=== PATIENT | male | born 1970 | race Caucasian/White ===

== ENCOUNTER → 2023-06-19 06:56 | Day surgery (SDC) | payer OTHER, SELFPAY ==
[2023-06-19 07:32] VITALS: BMI 34.3
== END ==
LOC: CATH 06:56
PROVIDERS: ATTENDING PHYSICIAN Internal Medicine Cardiovascular Disease
DX: I48.0 Paroxysmal atrial fibrillation (principal); I08.1 Rheumatic disorders of both mitral and tricuspid valves; I10 Essential (primary) hypertension; E78.5 Hyperlipidemia, unspecified; Z79.01 Long term (current) use of anticoagulants
CPT/HCPCS: 93325; 93320; 93312

== ENCOUNTER → 2023-06-27 07:32 | Outpatient (REF) | payer OTHER, SELFPAY | LOC: DHCBC/DCA 07:32 | PROVIDERS: ATTENDING PHYSICIAN Internal Medicine Cardiovascular Disease; FAMILY PHYSICIAN Family Medicine | DX: I48.0 Paroxysmal atrial fibrillation (principal) | CPT/HCPCS: 78452; 93017; A9500; J2785 ==

== ENCOUNTER 2023-08-09 07:01 | Day surgery (SDC) | payer OTHER, SELFPAY ==
[2023-08-09 07:19] VITALS: BMI 33.7
--- NOTE | 2023-08-09 08:41 | ITS.CL.CARDI ---
Chief Nurse Anesthetist - Cardioversion
Cardioversion
Procedure Report:
Date of Procedure:
Procedure: Cardioversion
Indication: Symptomatic atrial fibrillation
Performing Physician: Eliseo Brown MD
Technique: The patient was brought to the holding area. Signed informed consent was obtained. A time out was called and performed. The patient was anesthetized by the anesthesia service. Anticoagulation status was reviewed and appropriate. R2 pads
were placed anteriorly and posteriorly. A 200 J synchronized biphasic shock failed but a 360 J synchronized biphasic shock restored normal sinus rhythm without significant bradycardia. There were no complications.
Conclusion: Uncomplicated cardioversion from atrial fibrillation to sinus rhythm.
Recommendation: Routine post cardioversion care. Continue continuous churn buttermaker anticoagulation.
== END 2023-08-09 09:11 | disposition home or self-care (01) ==
LOC: CATH 07:01
PROVIDERS: ATTENDING PHYSICIAN Internal Medicine Cardiovascular Disease; FAMILY PHYSICIAN Family Medicine; OTHER PHYSICIAN Internal Medicine Cardiovascular Disease
DX: I48.0 Paroxysmal atrial fibrillation (principal); I08.1 Rheumatic disorders of both mitral and tricuspid valves; I10 Essential (primary) hypertension; E78.5 Hyperlipidemia, unspecified; R06.02 Shortness of breath; Z79.01 Long term (current) use of anticoagulants
CPT/HCPCS: 93312; 93320; 93325; 92960; 93005

== ENCOUNTER 2023-10-10 05:56 | Day surgery (SDC) | payer OTHER, SELFPAY ==
[2023-09-26 09:05] VITALS: BMI 34.1
[2023-09-26 09:41] LABS: % Basophils 0.7 % (0-2); % Eosinophils 2.5 % (0-6); % Lymphocytes 36.5 % (20.5-51.1); % Monocytes 7.9 % (1.7-9.3); % Neutrophils 51.4 % (42.2-75.2); Absolute Eosinophils 0.1 10^3/uL (0-0.7); Absolute Lymphocytes 1.5 10^3/uL (1.2-3.4); Absolute Monocytes 0.3 10^3/uL (0.1-0.6); Absolute Neutrophils 2.1 10^3/uL (1.4-6.5); Hematocrit 43.6 % (39.0-52.0); Hemoglobin 15.2 g/dL (13.0-18.0); Mean Corp Hgb Conc. 34.9 g/dL (33.0-37.0); Mean Corpuscular Hgb 33.3 pg (27.0-31.0); Mean Corpuscular Volume 95.4 fL (80.0-94.0); Mean Platelet Volume 10.6 fL (7.4-10.4); Nucleated Red Blood Cells % 0 % (-); Platelet Count 139 10^3/uL (130-400); Red Blood Cell Count 4.57 10^6/uL (4.70-6.10); Red Cell Dist. Width 14.3 % (11.5-14.5)
[2023-09-26 10:00] LABS: ALT (SGPT) 39 U/L (0-50); AST (SGOT) 54 U/L (17-59); Albumin 4.1 g/dl (3.5-5.0); Alkaline Phosphatase 160 U/L (38-126); Blood Urea Nitrogen 10 mg/dl (9-20); Calcium 9.1 mg/dl (8.4-10.2); Carbon Dioxide 24 mmol/L (22-30); Chloride 104 mmol/L (98-107); Estimated Creatinine Clearance > 125 ml/min; Glucose 160 mg/dl (70-99); Potassium 4.1 mmol/L (3.5-5.1); Sodium 137 mmol/L (135-145); Total Bilirubin 0.7 mg/dl (0.2-1.3); Total Protein 6.7 g/dl (6.3-8.2); eGFR > 60.00
[2023-09-26 10:04] LABS: INR 1.23; PT 15.5 Sec (11.4-14.6)
[2023-10-10] VITALS (17 sets, daily range): BP systolic 99–133; BP diastolic 56–100
[2023-10-10 09:00] LABS: ACT-LR - POC 347 Seconds (116-155)
[2023-10-10 09:16] LABS: ACT-LR - POC 358 Seconds (116-155)
[2023-10-10 09:41] LABS: ACT-LR - POC 335 Seconds (116-155)
[2023-10-10 10:07] LABS: ACT-LR - POC 376 Seconds (116-155)
[2023-10-10 10:31] LABS: ACT-LR - POC 189 Seconds (116-155)
[2023-10-10] MEDS: ZOFRAN 4 MG IV (11:21)
[2023-10-10] MEDS: ANESTHETIC LOZENGE 1 LOZENGE PO (11:26)
--- NOTE | 2023-10-10 11:27 | ITS.CL.ABL ---
Mail Machine Operator - Ablation
Ablation
Procedure Report:
Primary Care Physician: Prem Early DO
Procedure Date: 10/10/2023
Patient History:
Patient is a pleasant 53-year-old male with a past medical history significant for hypertension, neuropathy, gout, new dilated cardiomyopathy, paroxysmal early persistent atrial fibrillation, left atrial appendage thrombus resolved on Pradaxa.
See H&P for complete details.
Indication:
Symptomatic persistent atrial fibrillation
Cardiomyopathy
Arrhythmia Specific History:
Prior Medical Therapies for Rate and Rhythm Control:
X Beta-carlos
[ ] Calcium channel-carlos
[ ] Amiodarone
[ ] Dronederone
[ ] Sotalol
[ ] Flecainide
[ ] Dofetilide
[ ] Options limited by bradycardia
[ ] Options limited by comorbid renal disease
Prior Procedural Therapies for AF/AFL:
X Cardioversion
[ ] Pulmonary Vein Isolation
[ ] Posterior Wall Isolation
[ ] Additional lines (Specify)
[ ] Surgical Espino-MAZE or PVI (Specify)
Procedure Performed:
X AF ablation procedure (40084) -- includes LA/CS pacing, trans-septal, 3D mapping, + ICE
[ ] +IV drug (92682)
[ ] +Other Arrhythmia (18159)
[ ] +Other AF Line/ablation (09324)
Risks and expected recovery has been explained in detail. Alternative options have been explored, and in a shared-decision making fashion we have decided that this was the most appropriate procedure.
Method
NPO status confirmed. Grounding pad applied. Defibrillator pads applied. Continuous surface ECG, pulse oximetry, and blood pressure were monitored. Procedure was performed under general anesthesia, with anesthesia services.
Both groins were clipped, prepped with Chloraprep, and draped in sterile fashion. Time out was called. Local anesthesia administered with bupivacaine. The right and left femoral veins were accessed for catheter placement, using ultrasound guidance,
micro-puncture needle/wire, and modified seldinger technique. 3 sheaths were placed. The following catheters were used:
[ ] Tacticath SE (D/F Curve) ablation catheter
X Viewflex 9Fr ICE catheter
X Inquiry decapolar 6Fr diagnostic catheter
[ ] CRD Hex 6Fr
[ ] Arctic Front Advance Cryoballoon ([ ]28mm[ ]23mm)
[ ] Achieve Advance mapping catheter ([ ]15mm[ ]20mm)
X FlexCath Contour 10 Fr with PulseSelect PFA Catheter
X Advisor HD Grid Mapping Catheter, SE
[ ] Acuson AcuNav 8 Fr ICE catheter
[ ]Other: [ ]
Intracardiac ultrasound (ICE) was carefully advanced into the right atrium to guide sheath placement over a J-wire, catheter placement, guide trans-septal puncture, identify potential complications, identify anatomic structures and ensure proper
contact between ablation catheter and tissue.
Heparin was given prior to trans-septal puncture. Heparin was given to achieve and maintain a target ACT of 300-400 seconds throughout the procedure.
Trans-septal access was performed under ICE guidance. The trans-septal puncture was performed with a SafeSept wire through a Brockenbrough needle assembly through the steerable sheath. The wire was visualized as it entered the LSPV and system
advanced under ICE guidance and fluoroscopy into the LA. The Brockenbrough needle assembly, SafeSept wire and sheath dilator were removed under negative pressure. LA pressure was measured and recorded.
ICE and 3D mapping was performed to identify relevant cardiac structures. A careful 3D map was created to assess for regions of low-voltage and abnormal electrogram signals using HD grid mapping catheter and PulseSelect catheter. Additional mapping
was performed as outlined below.
Prior to ablation, glycopyrrolate was provided. PulseSelect catheter was advanced over J-wire to the ostium of each vein. Pulmonary vein isolation was performed with ostial and antral lesions in a circumferential manner. Contact was visualized via
EAM, ICE, fluoroscopy, and EGM signals. Following completion of ablation lesions, sinus rhythm was restored with a 200J synchronized DCCV and a post-ablation voltage/activation map was performed in sinus rhythm. Entrance and exit block were
confirmed for each vein.
Catheter and sheath were removed from the left atrium and post-ablation intracardiac echo evaluation was consistent with pre-ablation with no changes and no pericardial effusion and there is no left atrial thrombus or left ventricle thrombus seen.
Electrophysiology study was performed. Hemostasis was obtained with figure of 8 stitch for each groin and with manual pressure. Protamine was used for reversal.
Estimated Blood Loss
5-10 mL
Complications
None
Fluoroscopy: 6.7 minutes; 49.49 mGy; DAP 6.32
Baseline Intervals:
Rhythm: AF
QRS: 81 ms
QT: 352 ms
QTc: 537 ms
R-R: 430 ms
Post-Procedure Intervals:
MD: 172 ms
QRS: 86 ms
QT: 463 ms
QTc: 469 ms
A-A: 975 ms
R-R: 975 ms
AVWB: 340 ms
AVNERP: 600/290 ms
Recommendations
- Bedrest with straight-leg precautions as ordered
- Anticipate same day discharge if patient meeting clinical metrics
- Resume home medications as indicated
- Ok to resume anticoagulation tonight if patient and groin sites stable
- PPI daily for 30 days
- Plan for follow-up in office in 4-6 weeks
Sukumar Diaz DO
Clinical Cardiac Black Top Spreader Machine Operator
cc: Prem Early DO
[2023-10-10] MEDS: NEURONTIN 600 MG PO (14:06)
--- NOTE | 2023-10-10 15:30 | W.PN.UPDATE ---
Update Note
Progress Note Update
Pt seen post PVI. Bilat groin sites without ht/bleeding, non tender. OOB ambulating, urinating without difficulty. Post EKG NSR 60s, no acute changes. Resume pradaxa today, continue other meds as before. Followup at [facility] as scheduled. Home later
today if groin sites/tele remain stable.
== END 2023-10-10 15:45 | disposition home or self-care (01) ==
LOC: CATH 05:56
PROVIDERS: ATTENDING PHYSICIAN Internal Medicine Cardiovascular Disease; FAMILY PHYSICIAN Family Medicine
DX: I48.19 Other persistent atrial fibrillation (principal); Z79.01 Long term (current) use of anticoagulants; I10 Essential (primary) hypertension; I42.0 Dilated cardiomyopathy; G62.9 Polyneuropathy, unspecified; E78.5 Hyperlipidemia, unspecified
CPT/HCPCS: C1732; C1769; C1894; 36415; 75572; 76937; 80053; 85025; 85347; 85610; 86850; 86900; 86901; 93005; 93656; 93926; Q9967

== ENCOUNTER 2023-10-10 23:05 | Observation (INO) | payer OTHER, SELFPAY ==
[2023-10-10 17:59] VITALS: BP 125/92; BMI 35.2
--- NOTE | 2023-10-10 18:25 | ED.GENMED ---
History of Present Illness
<ADRIENNE Joshi - Last Filed: 10/11/23 03:06>
General
Chief Complaint: Vascular Symptoms
Source: patient
Exam Limitations: none
Time Seen by Provider: 10/10/23 18:03
Travel History
Have you had any contact with someone who has COVID-19?: No
Do you have any symptoms of coronavirus? Fever > 100 degrees, chills, cough, shortness of breath, sore throat, loss of taste or smell, muscle aches, or headache?: No
History of Present Illness
History of Present Illness:
This is a 53 year old male that comes in with c/o bleeding from both groins. States that he was here today for an ablation for his atrial fib. States that he was only home 1 hour when he bent over to get something and he stated bleeding from both
groin areas. States that that he has been SOB and nauseated after the ablation. Denies any fever, chills, chest pain, abd pain, vomiting, diarrhea, headache, dizziness, urinary burning.
Past History
<ADRIENNE Joshi - Last Filed: 10/11/23 03:06>
Past History
ED Past Medical History: Arrthythmia (Atrial fib), CHF, GERD, HTN, Hypercholesterolemia, Psychiatric (Anxiety, ) and Other (Neuropathy, Back pain, Hemorrhoids, Anemia, )
ED Past Surgical History: Orthopedic (Right and left hip surgery)
Social History
Tobacco: Non-smoker
Alcohol: Chronic alcoholic (Daily beer 2-3)
Drug: Marijuana
Personal: Single
Living: with roommate
Employment: Not employed
Review of Systems
<ADRIENNE Joshi - Last Filed: 10/11/23 03:06>
Review of Systems
All Other Systems: ROS reviewed and negative except as documented in HPI and ROS
Constitutional: Reports no symptoms; Denies fever or chills
EENT: Reports no symptoms
Respiratory: Reports trouble breathing; Denies cough
Cardiac: Reports no symptoms; Denies chest pain
ABD/GI: Reports nausea; Denies abdominal pain, vomiting or diarrhea
: Reports no symptoms; Denies dysuria, frequency or urgency
Musculoskeletal: Reports no symptoms
Skin: Reports no symptoms
Neurological: Reports no symptoms; Denies dizzy or headache
Psychiatric: Reports no symptoms
Phy Exam
<ADRIENNE Joshi - Last Filed: 10/11/23 03:06>
General Physical Exam
General Presentation: well appearing and no apparent distress
General age: appears stated age
General Skin: warm and dry
General Habitus: normal
General Mental: alert
General Hydration: appears well hydrated
ENT Exam
ENT Exam: TM's normal, pharynx normal and neck supple
Eye Exam
Eye Exam: EOMI
Cardiovascular Exam
Cardiovascular Exam: regular rate/rhythm, no edema and normal peripheral pulses
Pulmonary Exam
Pulmonary Exam: lungs clear, no respiratory distress, no rales, chest non tender, no crackles, no rhonchi, no wheezing and no cough
Gastrointestinal Exam
Gastrointestinal Exam: normal bowel sounds, non tender, soft, no organomegaly, no pulsatile mass and non distended
Musculoskeletal Exam
Musculoskeletal Exam: full ROM and no edema
Skin Exam
Skin Exam: normal color, warm/dry, no rash and no petechia
Psychiatric Exam
Psychiatric Exam: normal mood/affect
Course
<ADRIENNE Joshi - Last Filed: 10/11/23 03:06>
Orders/Labs/Results
Orders:
Orders
10/10/23 18:30
US Groin (vascular exam) LT Urgent
Comment: r/o pseudo aneurysm
Reason For Exam: Bleeding after ablation
US Groin (vascular exam) RT Urgent
Comment:
Reason For Exam: Bleeding after ablation
10/10/23 18:58
Complete Blood Count/With Diff Urgent
Comprehensive Metabolic Panel Urgent
Abnormal Lab Results
10/10/23
18:58
RBC 4.27 L 10^6/uL
(4.70-6.10)
MCV 97.4 H fL
(80.0-94.0)
MCH 34.0 H pg
(27.0-31.0)
MPV 10.7 H fL
(7.4-10.4)
Absolute Lymphs (auto) 0.9 L 10^3/uL
(1.2-3.4)
Immature Gran % 0.7 H %
(0-0.5)
Neutrophils % 80.5 H %
(42.2-75.2)
Lymphocytes % 15.0 L %
(20.5-51.1)
Carbon Dioxide 21 L mmol/L
(22-30)
Glucose 164 H mg/dl
(70-99)
AST 96 H U/L
(17-59)
10/10/23 18:58
10/10/23 18:58
Anemia. Glucose nonfasting. AST Elevated.
Vital Signs
Initial and Last Documented VS:
Initial Vital Signs
Temp Pulse Resp BP Pulse Ox
98.4 F 63 16 125/92 93
10/10/23 17:59 10/10/23 17:59 10/10/23 17:59 10/10/23 17:59 10/10/23 17:59
Last Documented Vital Signs
Temp Pulse Resp BP Pulse Ox
97.5 F 64 20 141/81 98
10/11/23 11:23 10/11/23 11:30 10/11/23 11:23 10/11/23 11:25 10/11/23 11:23
<Alma Green MD - Last Filed: 10/11/23 12:40>
Orders/Labs/Results
Orders:
Orders
10/10/23 18:30
US Groin (vascular exam) LT Urgent
Comment: r/o pseudo aneurysm
Reason For Exam: Bleeding after ablation
US Groin (vascular exam) RT Urgent
Comment:
Reason For Exam: Bleeding after ablation
10/10/23 18:58
Complete Blood Count/With Diff Urgent
Comprehensive Metabolic Panel Urgent
Abnormal Lab Results
10/10/23
18:58
RBC 4.27 L 10^6/uL
(4.70-6.10)
MCV 97.4 H fL
(80.0-94.0)
MCH 34.0 H pg
(27.0-31.0)
MPV 10.7 H fL
(7.4-10.4)
Absolute Lymphs (auto) 0.9 L 10^3/uL
(1.2-3.4)
Immature Gran % 0.7 H %
(0-0.5)
Neutrophils % 80.5 H %
(42.2-75.2)
Lymphocytes % 15.0 L %
(20.5-51.1)
Carbon Dioxide 21 L mmol/L
(22-30)
Glucose 164 H mg/dl
(70-99)
AST 96 H U/L
(17-59)
10/10/23 18:58
10/10/23 18:58
Vital Signs
Initial and Last Documented VS:
Initial Vital Signs
Temp Pulse Resp BP Pulse Ox
98.4 F 63 16 125/92 93
10/10/23 17:59 10/10/23 17:59 10/10/23 17:59 10/10/23 17:59 10/10/23 17:59
Last Documented Vital Signs
Temp Pulse Resp BP Pulse Ox
97.5 F 64 20 141/81 98
10/11/23 11:23 10/11/23 11:30 10/11/23 11:23 10/11/23 11:25 10/11/23 11:23
<ADRIENNE Joshi - Last Filed: 10/11/23 03:06>
MDM/Problems Addressed
Differential Diagnosis Includes:
Pseudo aneurysm.
MDM/Problems Addressed:
This is a 53 year old male that comes in with c/o bleeding from both groins. States that he had an ablation this morning and he was only home for 1 hour. State that he bent over and he just started to bleed and the blood was running down his legs.
Will check labs and get US.
Spoke with Dr. Hernandez and told that his US was negative. Will discharge home.
Patient went to leave and the right groin had significant bleeding again. Will admit patient to Dr. Brown service
Chronic conditions affecting care:
NA
Acute Exacerbation and/or Progression of Chronic Illness:
NA
<ADRIENNE Joshi - Last Filed: 10/11/23 03:06>
*Pulse Oximetry
Patient hypoxic: no
*EKG
Interpreted by ED Provider?: NA
Rate: EKG- N/A
*Enrollment Eligibility Representative Interpretation
Rate: Enrollment Eligibility Representative- N/A
*Critical Care Note
Total Time (30-74mins, 75-104mins- exclusive of procedures): Not Applicable
ED Attending Note
<ADRIENNE Joshi - Last Filed: 10/11/23 03:06>
-
Portions of this chart may have been created with voice recognition software.� Occasional wrong word or��sound alike� substitutions may have occurred due to the inherent limitations of voice recognition software.
<Alma Green MD - Last Filed: 10/11/23 12:40>
ED Attending Note
Patient seen and examined by attending physician: Yes
I performed the substantive portion of visit, reviewed & personally made and approve the management plan that is documented in note by myself or HI.: Yes
ED Attending Note:
53-year-old male history of Pradaxa use, status post ablation earlier today. Noted to have bleeding at right femoral access site, applied pressure and came to emergency department. Ultrasound unremarkable. Bleeding stopped. However, bleeding
resumed when patient stood and walked prompting him to return to the emergency department. At this time, patient supine, sandbags in place, normal peripheral pulses, no active bleeding, no symptoms. Patient denies pain. He is however quite
agitated and frustrated regarding the fact that bleeding happened in the first place, and then resumed after discharge. He is angry that this has happened, and wants assurance that he will see a plug maker first thing in the morning with likely
discharge tomorrow. Admitting provider made aware of importance of cardiology consult being placed for first thing in the morning. Patient is stable.
Discharge Plan
Departure
Patient Disposition: Admit
Date of Disposition: 10/10/23
Time of Disposition: 21:42
Admit to: Med/Surg
Presentation/result/management discussed w/ accepting MD/DO: DR. Brown
Patient with high blood pressure during this ER visit?: Yes
Condition: Good
Covid-19: Not Applicable
Discharge Problem:
Bleeding at insertion site
Interventions
Interventions:
*Risk Screen - Suicide Last Done: 10/11/23 00:32
*General Assessment Last Done: 10/10/23 17:59
*Neglect/Abuse Screening Last Done: 10/10/23 17:59
*ED COVID-19 Vaccine History Last Done: 10/11/23 00:32
*Nursing Disposition Last Done: 10/11/23 00:41
ED- Cardiac Assessment Last Done: 10/10/23 19:00
ED- Pulmonary Assessment Last Done: 10/10/23 19:00
ED-Peripheral Vascular Assessment Last Done: 10/10/23 19:00
ED-Skin Assessment Last Done: 10/10/23 19:00
Discharge Date and Time
Discharge Date/Time: 10/11/23 00:41
[2023-10-10 19:02] LABS: % Basophils 0.2 % (0-2); % Immature Granulocytes 0.7 % (0-0.5); % Monocytes 3.6 % (1.7-9.3); % Neutrophils 80.5 % (42.2-75.2); Absolute Lymphocytes 0.9 10^3/uL (1.2-3.4); Absolute Monocytes 0.2 10^3/uL (0.1-0.6); Absolute Neutrophils 4.9 10^3/uL (1.4-6.5); Hematocrit 41.6 % (39.0-52.0); Hemoglobin 14.5 g/dL (13.0-18.0); Mean Corp Hgb Conc. 34.9 g/dL (33.0-37.0); Mean Corpuscular Volume 97.4 fL (80.0-94.0); Mean Platelet Volume 10.7 fL (7.4-10.4); Nucleated Red Blood Cells % 0 % (-); Platelet Count 159 10^3/uL (130-400); Red Blood Cell Count 4.27 10^6/uL (4.70-6.10); Red Cell Dist. Width 14.3 % (11.5-14.5); White Blood Cell Count 6.1 10^3/uL (4.8-10.8)
[2023-10-10 19:17] LABS: ALT (SGPT) 40 U/L (0-50); AST (SGOT) 96 U/L (17-59); Alkaline Phosphatase 108 U/L (38-126); Blood Urea Nitrogen 10 mg/dl (9-20); Calcium 8.4 mg/dl (8.4-10.2); Carbon Dioxide 21 mmol/L (22-30); Chloride 106 mmol/L (98-107); Estimated Creatinine Clearance > 125 ml/min; Glucose 164 mg/dl (70-99); Potassium 4.8 mmol/L (3.5-5.1); Sodium 135 mmol/L (135-145); Total Bilirubin 0.8 mg/dl (0.2-1.3); Total Protein 6.4 g/dl (6.3-8.2); eGFR > 60.00
--- NOTE | 2023-10-10 21:52 | PHANOTE ---
Med Rec Note:
Pt refused interview stating 'I already know my medications' and 'this is the third time I've done this today'. Home med list left unconfirmed, compiled from Dr Nugent and Ameena 10/10/23.
--- NOTE | 2023-10-10 23:02 | HPS.HSE ---
Family Physician
-
Family Physician: Prem Early
Chief Complaint
-
Bleeding B/L groin post ablation
History of Present Illness
a 53 years old male that present in ER with a complain of bleeding B/L groin post ablation that was done today. Went to the assess the patient he has sand bag on the right groin as was actively bleeding in ER. Patient was so frustrated and did not
want to go with any further questions or assessment by this group underwriter, he only want to be seen by cardiology. He was concerning about about staying time and receiving another medical bill after discharge. ER physician spoke to the patient and he agreed
to stay to morning, but only to be assessed and evaluated by cardiology.
Medical History
Past Medical History
Past Medical History: Reports Arrhythmia (A-fib), CHF, GERD, HTN, Hypercholesterolemia, Psychiatric (anxiety ) and Other (Neuropathy, hemorrhoids, anemia, and back pain)
Past Surgical History: Reports Orthopedic (B/L hip surgery)
Social History
Tobacco: Non-smoker
Alcohol: Chronic Alcoholic (2-3 beer daily )
Drug: Marijuana
Personal: Single
Living: With Roomate
Employment: Not Employed
Family History
Family History: Diabetes (Brother diabetes Father prediabetes)
Allergies / Home Medications
Allergies reflects when Allergies were last updated in [facility].
Home Medications with original date entered in [facility]
Allergy/Medication List:
Patient Allergies
Allergy/AdvReac Type Severity Reaction Status Date / Time
No Known Allergies Allergy Unverified 10/10/23 06:21
Home Medications Table - record
�Medication �Instructions �Recorded �Confirmed
allopurinol 300 mg tablet 300 mg PO DAILY Gout 05/20/20 10/11/23
ascorbic acid (vitamin C) 1,000 mg 1,000 mg PO DAILY Supplement 05/11/23 10/11/23
tablet
cholecalciferol (vitamin D3) 25 25 mcg PO DAILY Supplement 05/11/23 10/11/23
mcg (1,000 unit) tablet
cyanocobalamin (vitamin B-12) 1,000 mcg PO DAILY Supplement 05/11/23 10/11/23
1,000 mcg tablet
melatonin 12 mg tablet 10 mg PO HS PRN sleep 05/11/23 10/11/23
omeprazole 20 mg capsule,delayed 20 mg PO DAILY Gastrointestinal 05/12/23 10/11/23
release Issue
furosemide 20 mg tablet (Lasix) 20 mg PO DAILY Fluid 05/15/23 10/11/23
retention/Swelling #30 tabs
losartan 25 mg tablet 12.5 mg (1/2 x 25 mg) PO DAILY 05/15/23 10/11/23
Heart Failure #30 tabs
thiamine HCl (vitamin B1) 100 mg 100 mg PO DAILY Supplement #10 tabs 05/15/23 10/11/23
tablet
dabigatran etexilate 150 mg 150 mg PO BID 08/09/23 10/11/23
capsule (Pradaxa)
gabapentin 300 mg capsule 1,200 mg PO DAILY@2000 10/10/23 10/11/23
gabapentin 300 mg capsule 600 mg PO DAILY 10/10/23 10/11/23
gabapentin 300 mg capsule 600 mg PO DAILY@1300 10/10/23 10/11/23
gabapentin 300 mg capsule 900 mg PO QPM 10/10/23 10/11/23
metoprolol succinate 50 mg 100 mg PO BID Arrhythmia 10/10/23 10/11/23
tablet,extended release 24 hr
Review of Systems
-
A 12 point ROS was completed and negative except as noted: Yes
EENT: Reports No Symptoms
Respiratory: Reports Trouble Breathing
Cardiac: Reports No Symptoms
Abdomen/GI: Reports No Symptoms
: Reports No Symptoms
Musculoskeletal: Reports No Symptoms
Skin: Reports No Symptoms
Neurological: Reports No Symptoms
Endocrine: Reports No Symptoms
Hematologic/Lymphatic: Reports Bleeding (RT groin/ ablation site)
Psych: Reports No Symptoms
Physical Exam
Vital Signs
Vital Signs
Temp Pulse Resp BP Pulse Ox
98.4 F 63 16 125/92 93
10/10/23 17:59 10/10/23 17:59 10/10/23 17:59 10/10/23 17:59 10/10/23 17:59
Physical Exam
General: No Apparent Distress
Respiratory: Clear
Cardiac: Regular Rhythm
Musculoskeletal: No Edema
Neuro: Awake and AO x 3
Psych: Intact Judgment/Insight
Laboratory Results
-
10/10/23 18:58
10/10/23 18:58
Laboratory Results
Total Bilirubin 0.8 mg/dl (0.2-1.3) 10/10/23 18:58
AST 96 U/L (17-59) H 10/10/23 18:58
ALT 40 U/L (0-50) 10/10/23 18:58
Alkaline Phosphatase 108 U/L (38-126) 10/10/23 18:58
Impression/Plan
-
B/L groin ultrasound unremarkable
IMPRESSION: Bleeding at insertion site B/L groin/ post ablation.
PLAN:
Admit/ observation/ IVU/ Dr. Brown Cardiology services.
NPO
Continue pressure/ Sand bags on bleeding sites.
CHF/ HTN/ arrhythmia
On lasix / losartan/ metoprolol
Gout
On Allopurinol
GERD
On omeprazole
DVT prophylaxis SCDs
Code status Full code
[2023-10-10 23:04] VITALS: BP 135/77
[2023-10-11] VITALS (9 sets, daily range): BP systolic 112–143; BP diastolic 45–81; BMI 35.2
[2023-10-11] MEDS: MELATONIN 10 MG PO ×2 (00:53→20:39)
--- NOTE | 2023-10-11 01:17 | PTCARENOTE ---
Patient admitted to IVU. Bedrest maintained. Right groin site saturated with blood, dressing removed and changed. Hemostasis pad applied with sterile gauze dressing, pedals . Both his groins are soft. Sandbag applied to right groin. Using urinal,
voided 400 cc. Plan of care reviewed, call quezada in reach
--- NOTE | 2023-10-11 04:08 | PTCARENOTE ---
Sandbag removed. Right groin soft. +2 pedal pulse. Dressing dry, VSS
--- NOTE | 2023-10-11 06:47 | PTCARENOTE ---
Patient out of bed to use the bathroom, bleeding from right groin again. Manual pressure applied for 30 minutes. Closure pad and 4x4 dressing applied. Some bruising around site but groin remians soft. Patient agitated and expressing his frustration
with staff. Sand bag applied.
--- NOTE | 2023-10-11 08:17 | CON.CAR ---
Addendum entered and electronically signed by Sukumar Diaz DO 10/11/23 09:20:
I saw and examined the patient.
The Samples And Repairs Preparer's note was reviewed and I agree with the note.
Comment:
GENERAL: no acute distress, upset/frustrated
EYE: sclera anicteric
NECK: Supple, no JVD
ENT: normal nose, moist mucosal membranes
CARDIAC: Regular rate and rhythm, +S1/S2, no murmur, rubs, or gallops; 2+ BL DP pulses
CHEST/PULMONARY: Normal effort, clear breath sounds
ABDOMEN: Soft, without focal tenderness or distention
NEUROLOGICAL: Alert and oriented x3
SKIN: Warm and dry, no rash; BL groin sites dressing c/d/i, soft, non-tender, no swelling or hematoma appreciated
PSYCH: Normal and appropriate interaction; upset/frustrated
A/P as below
Patient with right groin bleed following procedure on 10/10/2023. Reported bending/lifting as initial aggravating event leading to bleed. Admitted for further monitoring overnight (with bedrest/sandbag). BL groin US negative for hematoma or
pseudoaneurysm. BM today, re-bleed at site. Manual pressure and sandbag once more resolved bleeding. Patient frustrated regarding situation and concern about re-bleeding and is eager to go home as soon as possible. Due to re-bleed this morning, will
repeat lab work, consult vascular surgery for additional recommendations, and perform CT scan to better assess the right groin site. Patient verbalized understanding. He has been refusing bedrest/pressure but after continued discussion and
explanation, patient agreed for now to continue with bedrest and groin precautions. Resume OAC when patient stable and groins stable.
Original Note:
Consultation
Consultation Request
Date/Time Consultation Performed: 10/11/23
Performing Provider: Linda Garcia PA-C for Dr. Diaz
Reason for Consultation: groin bleed
Medical History
-
Chief Complaint: groin bleed
History of Present Illness:
Patient is a 53 yo M who underwent PVI 10/10/23. He was discharged to home same day. He states after going home he sat around for about a half hour then was bending over in the kitchen and noted his R groin was bleeding. He came to ER via EMS.
Sandbag was placed on his R groin for several hours and groin was better. Underwent US negative for pseudoaneurysm. He walked to the bathroom this AM, had BM, and R groin site began bleeding again. Pressure manually applied for 30 minutes then
sandbag placed back on site. Remains soft B/L. Hgb 14.5. Patient admitted for further observation.
PMH:
Symptomatic PAF s/p PVI 10/10/23
Chronic OAC with pradaxa
Dilated NICM, EF 30-35%
HFrEF
History of JOBY thrombus
HTN
Gout
Daily ETOH use
Vapes
Marijuana use
Past Medical History
Past Medical History: Other (in HPI)
Allergies / Home Medications
Allergy/AdvReac Type Severity Reaction Status Date / Time
No Known Allergies Allergy Unverified 10/10/23 06:21
�Medication �Instructions �Recorded �Confirmed �Type
allopurinol 300 mg tablet 300 mg PO DAILY Gout 05/20/20 10/11/23 History
ascorbic acid (vitamin C) 1,000 mg 1,000 mg PO DAILY Supplement 05/11/23 10/11/23 History
tablet
cholecalciferol (vitamin D3) 25 25 mcg PO DAILY Supplement 05/11/23 10/11/23 History
mcg (1,000 unit) tablet
cyanocobalamin (vitamin B-12) 1,000 mcg PO DAILY Supplement 05/11/23 10/11/23 History
1,000 mcg tablet
melatonin 12 mg tablet 10 mg PO HS PRN sleep 05/11/23 10/11/23 History
omeprazole 20 mg capsule,delayed 20 mg PO DAILY Gastrointestinal 05/12/23 10/11/23 History
release Issue
furosemide 20 mg tablet (Lasix) 20 mg PO DAILY Fluid 05/15/23 10/11/23 Rx
retention/Swelling #30 tabs
losartan 25 mg tablet 12.5 mg (1/2 x 25 mg) PO DAILY 05/15/23 10/11/23 Rx
Heart Failure #30 tabs
thiamine HCl (vitamin B1) 100 mg 100 mg PO DAILY Supplement #10 tabs 05/15/23 10/11/23 Rx
tablet
dabigatran etexilate 150 mg 150 mg PO BID 08/09/23 10/11/23 History
capsule (Pradaxa)
gabapentin 300 mg capsule 1,200 mg PO DAILY@199910/10/23 10/11/23 History
gabapentin 300 mg capsule 600 mg PO DAILY 10/10/23 10/11/23 History
gabapentin 300 mg capsule 600 mg PO DAILY@1300 10/10/23 10/11/23 History
gabapentin 300 mg capsule 900 mg PO QPM 10/10/23 10/11/23 History
metoprolol succinate 50 mg 100 mg PO BID Arrhythmia 10/10/23 10/11/23 History
tablet,extended release 24 hr
Review of Systems
-
History Source: Patient
All other systems: Negative unless noted
Physical Exam
Vital Signs
Temp Pulse Resp BP Pulse Ox
98.5 F 68 20 143/78 100
10/11/23 06:53 10/11/23 07:30 10/11/23 06:53 10/11/23 06:53 10/11/23 08:10
Lab Results
10/10/23 18:58
Physical Exam
General: No Apparent Distress and Other (patient angry, agitated)
HEENT: Normocephalic, Anicteric and Moist Mucous Membranes
Respiratory: Clear and Non Labored Respirations
Cardiac: S1/S2 and Regular Rhythm
GI: Soft, Non Tender, Non Distended and Normal Bowel Sounds
Musculoskeletal: No Clubbing, No Cyanosis and No Edema
Skin: Warm, Dry and Other (B/L groin sites soft, NTTP. sandbag on R groin, dressings c/d/i)
Neuro: AO x 3
Impression / Plan
-
Primary Tape Cutting Machine Operator: Dr. Diaz
Assessment:
R groin bleed (venous)
Symptomatic PAF s/p PVI 10/10/23
Chronic OAC with pradaxa
Dilated NICM, EF 30-35%
HFrEF
History of JOBY thrombus, resolved by GORGE 07/2023
HTN
Gout
Daily ETOH use
Vapes
Marijuana use
GORGE 07/2023: EF 30 to 35%, moderately dilated left atrium, mildly dilated right atrium, mildly dilated left atrial appendage, no clear thrombus seen, mild MR, mild to moderate TR
Plan:
-Patient presents back to [facility] after PVI 10/10/2023 due to right groin bleed. He states this initially started after he bent over in the kitchen yesterday evening. Since then he has had recurrence after having a bowel movement this
morning
-he remains very upset and agitated at times. we discussed with patient importance of activity restriction to avoid extra pressure on groin sites and for now plan to continue bedrest and sandbag pressure. he is very concerned that bleeding will
occur again without intervention
-reviewed hgb stable and US of B/L groins without pseudoaneurysm
-due to his ongoing concerns, and refusal to accept plan of bedrest with ongoing pressure application, will order CT venogram to ensure no larger bleeding issue. may require vascular eval
-currently remains off pradaxa, would plan to restart as soon as deemed safe from bleeding standpoint.
-in SR
-BPs stable. continue toprol, cozaar. would consider addition of SGLT2 and spironolactone as BP tolerates with known cardiomyopathy.
-d/w nursing
Data Reviewed
-
EKG: Tracing Personally Visualized and interpreted
Ultrasound: Report Reviewed by me
Medical Tests (Nuc Med, Echo etc): Report Reviewed by me
Labs: Labs Reviewed by me
Old Records: Reviewed
[2023-10-11 09:10] LABS: Hemoglobin 12.6 g/dL (13.0-18.0); Mean Corpuscular Hgb 34.5 pg (27.0-31.0); Mean Corpuscular Volume 98.6 fL (80.0-94.0); Mean Platelet Volume 10.4 fL (7.4-10.4); Platelet Count 127 10^3/uL (130-400); Red Blood Cell Count 3.65 10^6/uL (4.70-6.10); White Blood Cell Count 6.4 10^3/uL (4.8-10.8)
[2023-10-11] MEDS: PROTONIX 40 MG PO (09:31)
[2023-10-11] MEDS: TOPROL XL 100 MG PO ×2 (09:31→20:37)
[2023-10-11] MEDS: COZAAR 12.5 MG PO (09:31)
--- NOTE | 2023-10-11 11:07 | CON.VAS ---
Consultation
Consultation Request
Date/Time Consultation Performed: 10/11/2023 1045
Requesting Provider: Sukumar Diaz MD
Performing Provider: Gia Stacy NP-C for Saroj Jeffers MD
Reason for Consultation: Right groin reoccurent bleeding
Medical History
-
Chief Complaint: Right groin puncture site
History of Present Illness:
This is a 53-year-old male with significant past medical history for atrial fibrillation, CHF, HTN, GERD, and gout who underwent PVI procedure on 10/10/2023 via bilateral groin common femoral vein access. A 12 [place] sheath was used in the right
groin. Patient notes he had gone home yesterday and was bending down to get something out of a drawer and noted a pop sensation and blood streaming down his leg. He was able to get this to stop but then had another episode while he was getting to
the car to go to the ER. Then had another episode today after bowel movement. Denies any history of any arterial or venous problems.
Past Medical History
Past Medical History: CHF (Dilated NICM, EF 30-35%, HFrEF), GERD, HTN, Hypercholesterolemia and Other (Symptomatic PAF s/p PVI 10/10/23, History of JOBY thrombus, gout, neuropathy, hemorrhoids, anemia)
Past Surgical History: Orthopedic (B/L hip surgery)
Social History
Tobacco: Vaping
Alcohol: Daily
Drug: Marijuana
Personal: Single
Living: With Roomate
Allergies / Home Medications
Allergy/AdvReac Type Severity Reaction Status Date / Time
No Known Allergies Allergy Unverified 10/10/23 06:21
�Medication �Instructions �Recorded �Confirmed �Type
allopurinol 300 mg tablet 300 mg PO DAILY Gout 05/20/20 10/11/23 History
ascorbic acid (vitamin C) 1,000 mg 1,000 mg PO DAILY Supplement 05/11/23 10/11/23 History
tablet
cholecalciferol (vitamin D3) 25 25 mcg PO DAILY Supplement 05/11/23 10/11/23 History
mcg (1,000 unit) tablet
cyanocobalamin (vitamin B-12) 1,000 mcg PO DAILY Supplement 05/11/23 10/11/23 History
1,000 mcg tablet
melatonin 12 mg tablet 10 mg PO HS PRN sleep 05/11/23 10/11/23 History
omeprazole 20 mg capsule,delayed 20 mg PO DAILY Gastrointestinal 05/12/23 10/11/23 History
release Issue
furosemide 20 mg tablet (Lasix) 20 mg PO DAILY Fluid 05/15/23 10/11/23 Rx
retention/Swelling #30 tabs
losartan 25 mg tablet 12.5 mg (1/2 x 25 mg) PO DAILY 05/15/23 10/11/23 Rx
Heart Failure #30 tabs
thiamine HCl (vitamin B1) 100 mg 100 mg PO DAILY Supplement #10 tabs 05/15/23 10/11/23 Rx
tablet
dabigatran etexilate 150 mg 150 mg PO BID 08/09/23 10/11/23 History
capsule (Pradaxa)
gabapentin 300 mg capsule 1,200 mg PO DAILY@2000 10/10/23 10/11/23 History
gabapentin 300 mg capsule 600 mg PO DAILY 10/10/23 10/11/23 History
gabapentin 300 mg capsule 600 mg PO DAILY@1300 10/10/23 10/11/23 History
gabapentin 300 mg capsule 900 mg PO QPM 10/10/23 10/11/23 History
metoprolol succinate 50 mg 100 mg PO BID Arrhythmia 10/10/23 10/11/23 History
tablet,extended release 24 hr
Review of Systems
-
History Source: Patient
Constitutional: Reports No Symptoms
EENT: Reports No Symptoms
Respiratory: Reports No Symptoms
Cardiac: Reports No Symptoms
Abdomen/GI: Reports No Symptoms
: Reports No Symptoms
Musculoskeletal: Reports No Symptoms
Skin: Reports Other (right groin bleeding from right femoral vein puncture site)
Neurological: Reports No Symptoms
Endocrine: Reports No Symptoms
Physical Exam
Vital Signs
Temp Pulse Resp BP Pulse Ox
98.5 F 64 20 134/73 100
10/11/23 06:53 10/11/23 09:31 10/11/23 06:53 10/11/23 09:31 10/11/23 08:10
Lab Results
10/11/23 08:29
10/10/23 18:58
Physical Exam
General: No Apparent Distress
HEENT: Normocephalic, Anicteric and Atraumatic
Respiratory: Non Labored Respirations
Cardiac: Negative JVD
GI: Soft, Non Tender and Non Distended
Musculoskeletal: No Edema
Skin: Warm, Dry and Other (Groins bilaterally are flat. Right groin with mild ecchymosis but no obvious palpable hematoma, very soft. No pulsatile mass. Dry dressing currently in place.)
Neuro: AO x 3
Pulses: Bilateral Femoral: +2 and Bilateral Dorsalis Pedis: +2
Assessment / Plan
-
Assessment: 53 year old male POD#[address] Tay who presented with reoccurring bleeding from right groin femoral vein puncture site. .
Plan:
CT angiogram reviewed, with no evidence of pseudoaneurysm in the right groin. No evidence of AV fistula.
No indication for any surgical intervention at this point. No active bleeding. No obvious ongoing injury. Venous bleed, low pressure. Recommend continued compression dressing with bedrest for at least 6 hours (ideally flat bedrest). Then slow
sitting up and mobilization. If concern for bleeding would recommend monitoring for 12 to 24 hours. Please call with any questions.
--- NOTE | 2023-10-11 11:10 | W.PN.UPDATE ---
Update Note
Progress Note Update
Seen and examined with MARKETING EXECUTIVE's. Full consultation to follow. 53-year-old male who underwent PVI procedure via bilateral groin common femoral vein access. 12 [place]uv[place] sheath in the right groin. Patient notes he had gone home yesterday and was bending
down to get something out of a drawer and noted a pop sensation and blood streaming down his leg. He was able to get this to stop but then had another episode while he was getting to the car to go to the ER. Then had another episode today after
bowel movement. Denies any history of any arterial or venous problems. Remainder of medical history as noted in full consultation and in initial history which I reviewed.
On exam/ He is awake and alert. Head is normocephalic and atraumatic. Eyes are anicteric. Neck is soft without jugular venous distention. Abdomen is soft, obese. Groins bilaterally are flat. Specifically right groin with mild ecchymosis but no
obvious palpable hematoma. Is very soft. Easily palpable femoral pulse. No pulsatile mass. Dry dressing currently in place. Feet are warm with palpable DP pulses bilaterally.
CT angiogram reviewed. Delayed imaging also reviewed. To my interpretation I do not see any evidence of pseudoaneurysm in the right groin. No evidence of AV fistula. Delayed venous phase imaging does not show any overwhelming pooling of contrast
that I can appreciate. There is just some stranding in the soft tissues in the right side more than left. No focal hematoma or collection.
Plan/ Recurrent venous bleed after percutaneous PVI procedure through common femoral veins. Patient was rather insistent upon a suture helping this. I discussed with him that at this point I do not know that there is much benefit to placing a
suture again. Will defer to the interventional EP team regarding that decision. From my standpoint, no indication for any surgical intervention at this point. No active bleeding. No obvious ongoing injury. Venous bleed, low pressure. Therefore
we will recommend continued compression dressing. He has had waited pressure on the groin for some time, I do not think that is necessary anymore as there is no active bleeding currently. Manual pressure was also applied when he had bleeding again
this morning. Recommend bedrest for at least 6 hours (ideally flat bedrest). Then slow sitting up and mobilization. If concern for bleeding would recommend monitoring for 12 to 24 hours. I will sign off. Please call with any questions.
--- NOTE | 2023-10-11 13:51 | CM ---
CM following for DC planning needs.
Met w/ patient to complete initial assessment.
Pt. informs that he resides in a private, 2 story home/2STE w/ sig. other.
Functionally, patient is indep. w/ ADLs, mobility without the use of any assisted device.
Patient has Rx plan and uses [facility] for prescription needs.
Reviewed OBS status. OBS letter presented; copy provided. Pt. refusing to sign copy stating 'I believe this should be bundled in with my procedure yesterday'.
Anticipate DC to home once medically stable without needs.
[2023-10-11] MEDS: TYLENOL 650 MG PO (14:30)
--- NOTE | 2023-10-11 17:01 | VATNOTE ---
called to check midline dsg in right arm; noted blood stained gauze size of 50cent piece. VAT to change dsg in am. Instructed pt. and PCN, Ambika, that if blood oozes out from beneath dsg. to call VAT and will change. Pt. for d/c in am.
[2023-10-11] MEDS: NEURONTIN 900 MG PO (17:09)
[2023-10-11] MEDS: VITAMIN B1 100 MG PO (17:10)
--- NOTE | 2023-10-11 18:09 | PTCARENOTE ---
Pt maintained bedrest for 8 hours from last bleed at 06:40. Pt OOB @14:45, walked in halls and had a BM without further bleeding. Right femoral vein site ecchymotic, no further bleeding or hematoma. Pt well aware of activity restrictions to prevent
future bleeding events. Plan to restart pradaxa tonight and monitor groin closely. Will check Hg/Hct in am. Right midline IV device placed, some bleeding noted , checked by IV team.
[2023-10-11] MEDS: NEURONTIN 1200 MG PO (20:36)
[2023-10-11] MEDS: PRADAXA 150 MG PO (20:37)
--- NOTE | 2023-10-11 21:55 | PTCARENOTE ---
received patient at change of shift and in better spirits. Groin dressing are dry and intact. Denies pain, walking to the bathroom. SR/SB on telemetry, call quezada in reach
[2023-10-12 02:38] VITALS: BP 132/76
[2023-10-12 03:16] LABS: Hematocrit 36.4 % (39.0-52.0); Hemoglobin 12.1 g/dL (13.0-18.0)
--- NOTE | 2023-10-12 04:12 | PTCARENOTE ---
Patient with no complaints overnight, b/l groin CDI, labs collected, VSS, SB on telemetry
[2023-10-12 06:00] VITALS: BMI 34.1
[2023-10-12 07:13] VITALS: BP 136/71
--- NOTE | 2023-10-12 07:32 | W.PN.CARDCBS ---
Addendum entered and electronically signed by Patrica Burnett DO 10/12/23 10:43:
I saw and examined the patient.
The Rack Maker's note was reviewed and I agree with the note.
Comment: Patient seen and examined ambulating around room feeling well and anxious to go home. Denies palpitations, chest pain or pressure, shortness of breath. He denies edema or leg pain/weakness. He denies groin pain.
GEN: No distress, awake, alert, oriented x3.
LUNGS: CTA B/L, no wheezes/rales
CV: Reg, S1/S2, no murmur
ABD: soft, BS+, NT/ND
EXT: No edema
NEURO: Gross non-focal
SKIN: B/L groin sites soft, NTTP, no hematoma. Dressings c/d/i
Plan:
Returned with a venous groin bleed following PVI 10/10/2023 for symptomatic PAF on Pradaxa anticoagulation
-Groin ultrasound stable without pseudoaneurysm
-Hemoglobin stable
-Wound care and postprocedure activity restrictions reviewed with understanding
Nonischemic cardiomyopathy, appears euvolemic
-Continue to optimize goal-directed medical therapy.
-Will add Aldactone
-Alcohol cessation strongly advised
-Continue rhythm control strategy with recent PVI
-Outpatient cardiac follow-up including echocardiogram in December to reassess EF in sinus rhythm
-History of paroxysmal atrial fibrillation status post PVI 10/10/2023
-Maintaining sinus rhythm
-Continue Pradaxa
Stable for discharge home with cardiac follow-up
Original Note:
Today's Communication / Plan
-
stable overnight
ok for DC to home today
consider addition of spironolactone due to CM with EF 35%
Impression / Plan
-
Primary Furniture Designer: Dr. Diaz
Assessment:
R groin bleed (venous)
Symptomatic PAF s/p PVI 10/10/23
Chronic OAC with pradaxa
Dilated NICM, EF 30-35%
HFrEF
History of JOBY thrombus, resolved by GORGE 07/2023
HTN
Gout
Daily ETOH use
Vapes
Marijuana use
GORGE 07/2023: EF 30 to 35%, moderately dilated left atrium, mildly dilated right atrium, mildly dilated left atrial appendage, no clear thrombus seen, mild MR, mild to moderate TR
Plan:
-doing well overnight. no further bleeding
-groin sites remain soft
-US of B/L groins without pseudoaneurysm
-hgb stable at 12.1
-pradaxa resumed 10/10 PM
-reviewed activity restrictions and limitations post PVI
-in SR upon review of tele overnight
-he has been arranged for OP cardiac follow up
-will need repeat echo prior to 12/2023 visit to reassess EF
-BPs stable. continue toprol, cozaar. would consider addition of SGLT2 and spironolactone as BP tolerates with known cardiomyopathy.
-for DC to home today
-d/w nursing
-total DC time 32 minutes
Progress Note - Furniture Designer
Subjective
Date of Service: October 12, 2023
no issues overnight
Objective
Labs:
10/12/23 02:44
10/10/23 18:58
Labs
Hgb 12.1 g/dL (13.0-18.0) L 10/12/23 02:44
Hct 36.4 % (39.0-52.0) L 10/12/23 02:44
Plt Count 127 10^3/uL (130-400) L D 10/11/23 08:29
Sodium 135 mmol/L (135-145) 10/10/23 18:58
Potassium 4.8 mmol/L (3.5-5.1) 10/10/23 18:58
BUN 10 mg/dl (9-20) 10/10/23 18:58
Creatinine 0.7 mg/dL (0.7-1.3) 10/10/23 18:58
Glucose 164 mg/dl (70-99) H 10/10/23 18:58
Vital Signs and I&O:
Vital Signs
Temp Pulse Resp BP Pulse Ox
98.6 F 56 12 132/76 96
10/12/23 07:13 10/12/23 07:13 10/12/23 07:13 10/12/23 02:38 10/12/23 07:13
Vital Signs
Temp Pulse Resp BP Pulse Ox
98.6 F 56 12 132/76 96
10/12/23 07:13 10/12/23 07:13 10/12/23 07:13 10/12/23 02:38 10/12/23 07:13
Intake & Output
10/09/23 10/10/23 10/11/23 10/12/23
07:59 07:59 07:59 07:59
Intake Total 720 / 720
Output Total 400 / 400 450 / 450
Balance -400 / -400 270 / 270
Physical Exam
Physical Exam
GEN: No distress, awake, alert, oriented x3. sitting in chair
HEENT: supple, anicteric, mmm, eomi
LUNGS: CTA B/L, no wheezes/rales
CV: Reg, S1/S2, no murmur
ABD: soft, BS+, NT/ND
EXT: No cyanosis, clubbing, edema
NEURO: Gross non-focal
SKIN: Warm, pink, dry. No rash. B/L groin sites soft, NTTP, dressings c/d/i
[2023-10-12] MEDS: PRADAXA 150 MG PO (08:00)
[2023-10-12] MEDS: NEURONTIN 600 MG PO (08:00)
[2023-10-12] MEDS: VITAMIN B1 100 MG PO (08:01)
[2023-10-12] MEDS: ZYLOPRIM 300 MG PO (08:01)
[2023-10-12] MEDS: PROTONIX 40 MG PO (08:01)
[2023-10-12] MEDS: TOPROL XL 100 MG PO (08:02)
[2023-10-12] MEDS: COZAAR 12.5 MG PO (08:02)
--- NOTE | 2023-10-12 08:47 | W.DS.TRANS ---
DC Summary - Pulmonary Specialist
-
Discharge Instructions:
Sleep Apnea Risk High
Discharge Diagnosis/Procedures Right groin bleed post PVI
Diet Low Cholesterol,2 Gram Sodium
Activity No strenuous activity
Additional Activity no heavy lifting, bending/twisting/stooping/
crouching
Driving Restrictions No driving for 24 hours
Bathing Restrictions OK to Shower
Blood Work BMP in 2 weeks
Specialty Instructions Weigh Daily
Instructions:
Stand-Alone Forms: DC Instructions- Cath/EP Lab
Changes to Home Medications: Yes
Discharge Medications:
DC Medications w/original date entered in [facility]
allopurinol 300 mg tablet 300 mg PO DAILY Gout 05/20/20
ascorbic acid (vitamin C) 1,000 mg tablet 1,000 mg PO DAILY Supplement 05/11/23
cholecalciferol (vitamin D3) 25 mcg (1,000 unit) tablet 25 mcg PO DAILY Supplement 05/11/23
cyanocobalamin (vitamin B-12) 1,000 mcg tablet 1,000 mcg PO DAILY Supplement 05/11/23
melatonin 12 mg tablet 10 mg PO HS PRN sleep 05/11/23
omeprazole 20 mg capsule,delayed release 20 mg PO DAILY Gastrointestinal Issue 05/12/23
furosemide 20 mg tablet (Lasix) 20 mg PO DAILY Fluid retention/Swelling #30 tabs 05/15/23
losartan 25 mg tablet 12.5 mg (1/2 x 25 mg) PO DAILY Heart Failure #30 tabs 05/15/23
thiamine HCl (vitamin B1) 100 mg tablet 100 mg PO DAILY Supplement #10 tabs 05/15/23
dabigatran etexilate 150 mg capsule (Pradaxa) 150 mg PO BID 08/09/23
gabapentin 300 mg capsule 1,200 mg PO DAILY@199910/10/23
gabapentin 300 mg capsule 600 mg PO DAILY 10/10/23
gabapentin 300 mg capsule 600 mg PO DAILY@129910/10/23
gabapentin 300 mg capsule 900 mg PO QPM 10/10/23
metoprolol succinate 50 mg tablet,extended release 24 hr 100 mg PO BID Arrhythmia 10/10/23
spironolactone 25 mg tablet 12.5 mg (1/2 x 25 mg) PO DAILY #30 tabs 10/12/23
Home Medication Changes
spironolactone is new
Pending Results: No
[2023-10-12] MEDS: ALDACTONE 12.5 MG PO (09:38)
--- NOTE | 2023-10-12 10:52 | PTCARENOTE ---
Pt up walking around, no further bleeding noted. Pt seen by Linda Garcia, JENA and . Right midline IV device removed by IV team. Discharge instructions reviewed with pt regarding activity restrictions, wound care, CHF guidelines,
medications nad their possible side effects, reporting cares and concerns and follow up appt's and lab tests. Very good understanding verbalized. Pt escorted out via wheelchair and discharged to home.
--- NOTE | 2023-10-12 11:30 | CM ---
Pt. DC today to home without needs.
== END 2023-10-12 10:35 | disposition home or self-care (01) ==
LOC: IVU 23:05
PROVIDERS: Clinical Nurse Specialist Family Health; Physician Assistant; ADMITTING PHYSICIAN Internal Medicine Cardiovascular Disease; EMERGENCY PHYSICIAN Emergency Medicine; FAMILY PHYSICIAN Family Medicine; OTHER PHYSICIAN Surgery Vascular Surgery
DX: I97.618 Postprocedural hemorrhage of a circulatory system organ or structure following other circulatory system procedure (principal); Y84.0 Cardiac catheterization as the cause of abnormal reaction of the patient, or of later complication, without mention of misadventure at the time of the procedure; Y71.3 Surgical instruments, materials and cardiovascular devices (including sutures) associated with adverse incidents; Y92.009 Unspecified place in unspecified non-institutional (private) residence as the place of occurrence of the external cause; R45.1 Restlessness and agitation; I48.0 Paroxysmal atrial fibrillation; R06.02 Shortness of breath; R11.0 Nausea; I11.0 Hypertensive heart disease with heart failure; F12.90 Cannabis use, unspecified, uncomplicated; I42.0 Dilated cardiomyopathy; F17.290 Nicotine dependence, other tobacco product, uncomplicated; I50.22 Chronic systolic (congestive) heart failure; E78.00 Pure hypercholesterolemia, unspecified; K21.9 Gastro-esophageal reflux disease without esophagitis; F10.10 Alcohol abuse, uncomplicated; D64.9 Anemia, unspecified; M10.9 Gout, unspecified; Z87.19 Personal history of other diseases of the digestive system; Z79.01 Long term (current) use of anticoagulants
CPT/HCPCS: 74174; 80053; 85014; 85018; 85025; 85027; 86900; 86901; 93005; 93926; 99283; G0378; Q9967

== ENCOUNTER → 2023-10-18 09:18 | Outpatient (REF) | payer OTHER, SELFPAY | LOC: DHSLP 09:18 | PROVIDERS: ATTENDING PHYSICIAN Internal Medicine Cardiovascular Disease | DX: G47.33 Obstructive sleep apnea (adult) (pediatric) (principal) | CPT/HCPCS: 95800 ==

== ENCOUNTER → 2023-12-05 10:30 | Outpatient (REF) | payer OTHER, SELFPAY | LOC: RCS 10:30 | PROVIDERS: ATTENDING PHYSICIAN Internal Medicine Cardiovascular Disease; FAMILY PHYSICIAN Family Medicine | DX: I42.0 Dilated cardiomyopathy (principal) | CPT/HCPCS: 93306 ==

== ENCOUNTER → 2024-05-06 10:54 | Outpatient (REF) | payer OTHER, SELFPAY | LOC: RAD 10:54 | PROVIDERS: ATTENDING PHYSICIAN Internal Medicine Cardiovascular Disease; FAMILY PHYSICIAN Family Medicine | DX: E85.9 Amyloidosis, unspecified (principal) | CPT/HCPCS: 78803; A9538 ==

== ENCOUNTER 2025-05-07 09:24 | Day surgery (SDC) | payer OTHER, SELFPAY ==
[2025-05-07 10:16] VITALS: BMI 33.1
== END 2025-05-07 11:30 | disposition home or self-care (01) ==
LOC: CATH 09:24
PROVIDERS: ATTENDING PHYSICIAN Internal Medicine Cardiovascular Disease; FAMILY PHYSICIAN Family Medicine; OTHER PHYSICIAN Internal Medicine Cardiovascular Disease
DX: I48.91 Unspecified atrial fibrillation (principal); I08.1 Rheumatic disorders of both mitral and tricuspid valves; I08.8 Other rheumatic multiple valve diseases
CPT/HCPCS: 93312; 93325; 93320; 92960; 93005